=== PATIENT | male | born 1950 ===

== ENCOUNTER → 2021-06-17 | Outpatient (CLI) | payer MEDICARE, OTHER | LOC: COL.RAD 07:30 | DX: Z12.2 Encounter for screening for malignant neoplasm of respiratory organs (principal); Z13.6 Encounter for screening for cardiovascular disorders; Z87.891 Personal history of nicotine dependence ==

== ENCOUNTER 2023-07-29 20:05 | Emergency (ER) | payer MEDICARE, OTHER ==
[~2023-07-29] VITALS: Ht 172.7 cm; Wt 97.7 kg
[2023-07-29 20:08] VITALS: BP 129/80; PULSE 118; TEMP 97.6
[2023-07-29] MEDS ORDERED: Morphine 10 MG/ML VIAL IM ONE (21:30)
== END 2023-07-29 22:25 | disposition home or self-care (01) ==
LOC: COL.ER 20:05
DX: S70.11XA Contusion of right thigh, initial encounter (principal); Z87.891 Personal history of nicotine dependence; Z98.890 Other specified postprocedural states; X50.1XXA Overexertion from prolonged static or awkward postures, initial encounter; Y92.009 Unspecified place in unspecified non-institutional (private) residence as the place of occurrence of the external cause
CPT/HCPCS: J2270; L1846